=== PATIENT | female | born 1985 | race Caucasian/White ===

== ENCOUNTER 2022-12-02 20:28 | Observation (INO) | payer BC ==
[~2022-12-02] VITALS: Ht 160 cm; Wt 84.4 kg
[2022-12-02] MEDS ORDERED: LABE100T9 MT (20:58)
[2022-12-02] MEDS ORDERED: ASPI-1160 PO (21:03)
[2022-12-02] MEDS ORDERED: PREN-55 PO (21:05)
[2022-12-02] MEDS ORDERED: ACETAMINOPHEN 500MG TABLET PO NR (21:15)
[2022-12-02] MEDS: LACTATED RINGERS 1,000 ML IV SCH (21:20)
[2022-12-02 21:31] LABS: CHLORIDE 110 mEq/L (98-107)
[2022-12-02 21:36] LABS: BASOPHILS % 0.8 % (0.0-2.0); EOSINOPHILS % 0.8 % (0.0-5.0); HEMATOCRIT. 33.7 % (36.0-48.0); HEMOGLOBIN. 11.7 g/dL (12.0-16.0); LYMPHOCYTES % 23.1 % (20.0-50.0); MEAN CORPUSCULAR HEMOGLOBIN 30.2 pg (28.0-32.0); MEAN CORPUSCULAR VOLUME 87.1 fL (81.0-99.0); MEAN PLATELET VOLUME 9.3 fl (7.4-10.4); MONOCYTES % 5.2 % (2.0-8.0); NEUTROPHILS % 70.1 % (40.0-76.0); PLATELET 216 x1000/uL (130-400); RED BLOOD CELL COUNT 3.87 mill/uL (4.2-5.4); RED CELL DISTRIBUTION WIDTH 14.7 % (11.6-14.6)
[2022-12-02 21:39] LABS: CLARITY URINE CLEAR (CLEAR); COLOR URINE YELLOW (YELLOW); KETONES URINE NEGATIVE (NEGATIVE); LEUKOCYTE ESTERASE URINE NEGATIVE (NEGATIVE); NITRITE URINE NEGATIVE (NEGATIVE); OCCULT BLOOD URINE TRACE (NEGATIVE); PH URINE 6.5 (4.5-8.0); PROTEIN URINE 3+ (NEGATIVE); SPECIFIC GRAVITY URINE 1.005 (1.005-1.030); UROBILINOGEN URINE 0.2 E.U./dL (0.2-1.0)
[2022-12-02 21:44] LABS: D-DIMER 2.71 mg/L FEU (<0.50); INR 0.9; PARTIAL THROMBOPLASTIN TIME 24.8 sec (23.4-31.0); PROTHROMBIN TIME 9.7 sec (9.6-11.0)
[2022-12-02] MEDS ORDERED: LABETALOL HCL 100MG TABLET PO NR (22:45)
[2022-12-03] MEDS: LACTATED RINGERS 1,000 ML IV SCH (02:49)
[2022-12-03] MEDS ORDERED: LABETALOL HCL 100MG TABLET PO SCH (07:00)
== END 2022-12-03 06:50 | disposition home or self-care (01) ==
LOC: 8 EST LDRP 20:28
PROVIDERS: ADMIT Obstetrics & Gynecology; ATTEND Obstetrics & Gynecology
DX: O10.913 Unspecified pre-existing hypertension complicating pregnancy, third trimester (principal); O24.410 Gestational diabetes mellitus in pregnancy, diet controlled; O26.893 Other specified pregnancy related conditions, third trimester; R42 Dizziness and giddiness; R51.9 Headache, unspecified; O62.9 Abnormality of forces of labor, unspecified; O36.8130 Decreased fetal movements, third trimester, not applicable or unspecified; Z3A.37 37 weeks gestation of pregnancy; Z79.899 Other long term (current) drug therapy
CPT/HCPCS: 36415; 59025; 76805; 76818; 80053; 81003; 84550; 85025; 85379; 85384; 85610; 85730; 96360; 96361; G0378; J7120